=== PATIENT | male | born 1935 | race Caucasian/White ===

== ENCOUNTER 2017-02-10 14:06 | Day surgery (SDC) | payer OTHER, MEDICAID ==
[~2017-02-10] VITALS: Ht 175.3 cm; Wt 87.6 kg
[~2017-02-10 14:06] MED LIST: ASPI-650 PO; ASPI325T17 PO; ATOR40TA PO; ATOR40TA78 PO; CLOP75TA52 PO; CYAN1TAB2 PO; GLIM2TAB2 PO; LISI-167 PO; LORA-439 PO; METF100010 PO; METF850T2 PO; METO25TA35 PO; TAMS-11 PO; TAMS0.4C2 PO; TRAM50TA2 PO
[2017-02-10] MEDS ORDERED: LACTATED RINGERS 1,000 ML IV SCH (15:12)
[2017-02-10 15:25] VITALS: BP 172/94
[2017-02-10] MEDS ORDERED: PLEASE ENTER HEIGHT AND WEIGHT MC SCH (15:30)
[2017-02-10] MEDS ORDERED: CLOP75TA52 PO (15:47)
[2017-02-10] MEDS ORDERED: TRAM50TA2 PO (15:47)
[2017-02-10] MEDS ORDERED: ASPI-496 PO (15:47)
[2017-02-10] MEDS ORDERED: DOCU100C33 PO (15:47)
[2017-02-10] MEDS ORDERED: CHOL2000 PO (15:47)
[2017-02-10] MEDS ORDERED: INSU100V8 SQ (15:47)
[2017-02-10 16:05] LABS: BASOPHILS # (AUTO) 0.02 x10^3/uL (0-0.1); BASOPHILS % (AUTO) 0 % (0-1); EOSINOPHILS # (AUTO) 0.61 x10^3/uL (0-0.4); EOSINOPHILS % (AUTO) 8 % (1-7); LYMPHOCYTES # (AUTO) 1.84 x10^3/uL (1-3.4); LYMPHOCYTES % (AUTO) 23 % (22-44); MD NO; MEAN CORPUSCULAR HEMOGLOBIN 33.1 pg (27.5-34.5); MEAN CORPUSCULAR HGB CONC 33.8 g/dL (33.2-36.2); MEAN CORPUSCULAR VOLUME 97.8 fL (81-97); MEAN PLATELET VOLUME 8.2 fL (7.4-10.4); MONOCYTES % (AUTO) 7 % (2-9); NEUTROPHILS # (AUTO) 5.06 x10^3/uL (1.8-6.8); NEUTROPHILS % (AUTO) 62 % (42-75); PLATELET COUNT 151 x10^3/uL (130-400); RED BLOOD COUNT 4.14 x10^6/uL (4.38-5.82); RED CELL DISTRIBUTION WIDTH 14.3 % (9.4-14.8)
[2017-02-10 16:11] LABS: MICROSCOPIC NOT IND
[2017-02-10 16:14] LABS: ALANINE AMINOTRANSFERASE 24 U/L (12-78); ALBUMIN 3.8 g/dL (3.4-5.0); ANION GAP 8 mmol/L (5-15); CALCIUM 9.3 mg/dL (8.5-10.1); CHLORIDE 107 mmol/L (98-107); CHOLESTEROL, TOTAL 153 mg/dL (140-239); CREATININE 1.12 mg/dL (0.7-1.3)
[2017-02-10 16:24] LABS: CULTURE INDICATED? NO
[2017-02-10 16:25] LABS: ALKALINE PHOSPHATASE 135 U/L (45-117); BILIRUBIN,TOTAL 0.7 mg/dL (0.2-1.0); CHOL/HDL RATIO 3.1; HDL CHOL % 33 % (26-37); HDL CHOLESTEROL (DIRECT) 50 mg/dL (40-60); LDL CHOLESTEROL,CALCULATED 85 mg/dL (54-169); LDL/HDL RATIO 1.7 (0.5-3.0); T4 (THYROXINE) 10.8 mcg/dL (4.5-12.1); TOTAL PROTEIN 7.6 g/dL (6.4-8.2); TRIGLYCERIDES 91 mg/dL (50-200); VLDL CHOLESTEROL 18 mg/dL (0-25)
[2017-02-10 16:37] LABS: HEMOGLOBIN A1C 7.4 % (4.2-6.3)
[2017-02-10] MEDS ORDERED: FENTANYL PF 250 MCG/5ML ONE (16:48)
[2017-02-10] MEDS ORDERED: ONDANSETRON 2MG/ML, 2ML ONE (17:13)
[2017-02-10] MEDS ORDERED: CIPROFLOXACIN/PMX 400MG/200ML 200 ML IVPB ONE (17:13)
[2017-02-10] MEDS ORDERED: PROPOFOL 10 MG/ML, 20ML ONE (17:39)
[2017-02-10] MEDS ORDERED: ROCURONIUM 10 MG/ML,10ML ONE (17:39)
[2017-02-10] MEDS ORDERED: DEXAMETHASONE 4 MG/ML, 1ML ONE ×2 (17:39)
[2017-02-10] MEDS ORDERED: LABETALOL 5MG/ML, 20ML ONE (17:41)
[2017-02-10] MEDS ORDERED: FENTANYL PF 100 MCG/2ML IV PRN (18:00)
[2017-02-10] MEDS ORDERED: hydrALAzine 20 MG/ML, 1ML IV PRN (18:00)
[2017-02-10] MEDS ORDERED: HYDROmorphone 1 MG/ML, 1ML IV PRN (18:00)
[2017-02-10] MEDS ORDERED: PROMETHAZINE 25 MG/ML, 1ML IV PRN (18:00)
[2017-02-10] MEDS ORDERED: OXYcodone 5 MG/5 ML ORAL.SOL UDC PO PRN (18:00)
[2017-02-10] MEDS ORDERED: ACETAMINOPHEN 325 MG TABLET PO PRN (18:00)
[2017-02-10] MEDS ORDERED: ONDANSETRON 2MG/ML, 2ML IVPush PRN (18:00)
[2017-02-10] MEDS ORDERED: LABETALOL 5MG/ML, 20ML IV PRN (18:00)
[2017-02-10] MEDS ORDERED: KETOROLAC 30 MG/1 ML ONE (18:02)
[2017-02-10] MEDS ORDERED: OXYcodone 5 MG/5 ML ORAL.SOL UDC ONE (18:27)
[2017-02-10] MEDS ORDERED: OXYcodone/APAP 5/325MG TABLET PO PRN (18:30)
[2017-02-10] MEDS ORDERED: hydrALAzine 20 MG/ML, 1ML ONE (18:44)
[2017-02-10] MEDS ORDERED: CIPR500T87 PO (20:22)
[2017-02-10] MEDS ORDERED: PHEN-418 PO (20:23)
== END 2017-02-10 21:50 | disposition home or self-care (01) ==
LOC: OUT 14:06 → 4NOR 19:41 → OUT 21:50
PROVIDERS: ATTEND Urology
DX: N20.2 Calculus of kidney with calculus of ureter (principal); E11.9 Type 2 diabetes mellitus without complications; E78.00 Pure hypercholesterolemia, unspecified; J44.9 Chronic obstructive pulmonary disease, unspecified; F41.9 Anxiety disorder, unspecified; Z87.39 Personal history of other diseases of the musculoskeletal system and connective tissue; Z85.828 Personal history of other malignant neoplasm of skin
CPT/HCPCS: 36415; 52353; 74000; 76001; 80053; 80061; 81003; 82043; 82360; 82570; 82962; 83036; 84436; 84481; 85025; 88300; 93005; C1726; C1769; J0360; J0744; J1100; J1885; J2405; J2704; J3010

== ENCOUNTER → 2017-03-02 | Outpatient (CLI) | payer OTHER, MEDICAID ==
[~2017-03-02] MED LIST changes: +ASPI-496 PO; +CHOL2000 PO; +CIPR500T87 PO; +DOCU100C33 PO; +INSU100V8 SQ; +PHEN-418 PO
== END | disposition home or self-care (01) ==
LOC: CVU 09:59
PROVIDERS: ATTEND Internal Medicine Cardiovascular Disease
DX: I35.8 Other nonrheumatic aortic valve disorders (principal); I70.213 Atherosclerosis of native arteries of extremities with intermittent claudication, bilateral legs; I25.10 Atherosclerotic heart disease of native coronary artery without angina pectoris; E11.9 Type 2 diabetes mellitus without complications; E78.5 Hyperlipidemia, unspecified; I10 Essential (primary) hypertension; I25.2 Old myocardial infarction; Z87.891 Personal history of nicotine dependence
CPT/HCPCS: 93922; C8929